=== PATIENT | male | born 2000 | race Asian ===

== ENCOUNTER 2018-07-17 14:25 | Emergency (ER) | payer OTHER ==
[2018-07-17 14:31] VITALS: BP 150/69; PULSE 61; TEMP 98.1; BMI 25.8
--- NOTE | 2018-07-17 14:31 | PDOC ---
Rapid Medical Evaluation Chief Complaint: Bone Injury Medical Evaluation: Allergies Allergy/AdvReac Type Severity Reaction Status Date / Time No Known Allergies Allergy Verified 01/18/16 23:37 07/17/18 14:30 I have performed a brief in-person evaluation of this patient. The patient presents with a chief complaint of:persistent pain to R ankle s/p basketball injury 3 weeks ago Pertinent physical exam findings:unremarkable I have ordered the following:XR The patient will proceed to the ED for further evaluation. Discharge Disposition - Diagnosis Ankle pain Qualifiers: Chronicity: unspecified Laterality: right Qualified Code(s): M25.571 - Pain in right ankle and joints of right foot - Referrals - Patient Instructions - Post Discharge Activity
--- NOTE | 2018-07-17 15:28 | PDOC ---
History of Present Illness - General Chief Complaint: Bone Injury Stated Complaint: RT ANKLE INJURY Time Seen by Provider: 07/17/18 14:47 History Source: Patient Exam Limitations: No Limitations - History of Present Illness Initial Comments: 07/17/18 15:21 HISTORY OF PRESENT ILLNESS: 17-year-old man denies medical history presents emergency department for evaluation of right ankle pain for 3 weeks while playing basketball. Patient reports landed on her we will playing basketball and experience sharp pain. It walking on the ankle without difficulty for the past 3 weeks but was out at a [employer] last night and landed awkwardly on his right ankle reinjuring the ankle. Patient has been able to walk since reinjuring the ankle but has noted increased pain and swelling. No recent travel or sick contacts. PAST MEDICAL HISTORY: Denies past medical history SURGICAL HISTORY: Denies ALLERGIES: No known drug allergies REVIEW OF SYSTEMS General/Constitutional: Denies fever or chills. Denies weakness, weight change. HEENT: Denies change in vision. Denies ear pain or discharge. Denies sore throat. Cardiovascular: Denies chest pain or shortness of breath. Respiratory: Denies cough, wheezing, or hemoptysis. Gastrointestinal: Denies nausea, vomiting, diarrhea or constipation. Denies rectal bleeding. Genitourinary: Denies dysuria, frequency, or change in urination. Musculoskeletal: see HPI Skin and breasts: Denies rash or easy bruising. Neurologic: Denies headache, vertigo, loss of consciousness, or loss of sensation. Psychiatric: Denies depression or anxiety. Endocrine: Denies increased thirst. Denies abnormal weight change. Hematologic/Lymphatic: Denies anemia, easy bleeding, or history of blood clots. Allergic/Immunologic: Denies hives or skin allergy. Denies latex allergy. PHYSICAL EXAM General Appearance: Well-appearing, appropriately dressed. No apparent distress , no intoxication. HEENT: EOMI, PERRLA, normal ENT inspection, normal voice, TMs normal, pharynx normal. No conjunctival pallor. No photophobia, scleral icterus. Neck: Supple. Trachea midline. No tenderness, rigidity, carotid bruit, stridor , lymphadenopathy, or thyromegaly. Respiratory/Chest: Lungs CTAB. No shortness of breath, chest tenderness, respiratory distress, accessory muscle use. No crackles, rales, rhonchi, stridor , wheezing, dullness Cardiovascular: RRR. S1, S2. No JVD, murmur, bradycardia, tachycardia. Vascular Pulses: Dorsalis-Pedis (R): 2+, Dorsalis-Pedis (L): 2+ Gastrointestinal/Abdominal: Normal bowel sounds. Abdomen soft, non-distended. No tenderness or rebound tenderness. No organomegaly, pulsatile mass, guarding, hernia, hepatomegaly, splenomegaly. Lymphatic: No adenopathy, tenderness. Musculoskeletal/Extremities: Normal inspection. FROM of all extremities, normal capillary refill. Pelvis Stable. No CVA tenderness. No tenderness to extremities, pedal edema, swelling, erythema or deformity. Swelling and ecchymosis present to right ankle over the lateral malleolus. No tenderness present. Integumentary: Appropriate color, dry, warm. No cyanosis, erythema, jaundice or rash Neurologic: senior ssis developer II-XII intact. Fully oriented, alert. Appropriate mood/affect. Motor strength 5/5. No appreciable EOM palsy, facial droop or sensory deficit. Past History - Past Medical History Allergies/Adverse Reactions: Allergies Allergy/AdvReac Type Severity Reaction Status Date / Time No Known Allergies Allergy Verified 01/18/16 23:37 Home Medications: Ambulatory Orders NK [No Known Home Medication] 07/17/18 COPD: No - Immunization History Immunization Up to Date: Yes - Suicide/Smoking/Psychosocial Hx Smoking Status: No Smoking History: Never smoked Have you smoked in the past 12 months: No Number of Cigarettes Smoked Daily: 0 Hx Alcohol Use: No Drug/Substance Use Hx: No *Physical Exam - Vital Signs Last Vital Signs Temp Pulse Resp BP Pulse Ox 98.1 F 61 18 150/69 99 07/17/18 14:29 07/17/18 14:29 07/17/18 14:29 07/17/18 14:29 07/17/18 14:29 Moderate Sedation - Procedure Monitoring Vital Signs: Procedure Monitoring Vital Signs Temperature 98.1 F 07/17/18 14:29 Pulse Rate 61 07/17/18 14:29 Respiratory Rate 18 07/17/18 14:29 Blood Pressure 150/69 07/17/18 14:29 O2 Sat by Pulse Oximetry (%) 99 07/17/18 14:29 Medical Decision Making - Medical Decision Making 07/17/18 15:21 A/P: 17-year-old man with right ankle pain for 3 weeks after playing basketball. No bony tenderness present to bones of the lower leg, ankle or foot 2+ DP pulses present bilaterally Capillary refills within normal limits Neurovascular intact X-rays perform rapid medical evaluation as read by me: No acute fractures or dislocations present Ambrosio bandage Discharge home with orthopedic follow-up. *DC/Admit/Observation/Transfer Diagnosis at time of Disposition: Ankle pain Qualifiers: Chronicity: unspecified Laterality: right Qualified Code(s): M25.571 - Pain in right ankle and joints of right foot - Discharge Dispostion Disposition: HOME Condition at time of disposition: Stable Decision to Admit order: No - Referrals Referrals: Demarco Munguia MD [Staff Physician] - - Patient Instructions Additional Instructions: Take Tylenol or Motrin as needed for pain. Follow manufacturers instructions for appropriate dosage. Try not to walk or bear weight on your right ankle as much as possible for the next 3 days. Apply ice for 20 minutes and removed for at least 20 minutes before reapplying the ice. Keep Ambrosio wrap on your ankle as much as possible to help decrease some of the swelling control pain. Whenever possible keep your foot elevated to decrease swelling to your ankle. You've been given the number for an orthopedist. If symptoms do not resolve within the next 7 days call the orthopedist for further evaluation. Return to emergency department for discoloration of the foot, numbness or tingling to the foot, worsening pain, or any other concerns. Thank you very much for choosing us to provide your emergent healthcare needs. - Post Discharge Activity
== END 2018-07-17 15:48 | disposition home or self-care (01) ==
LOC: JERFT 14:25
DX: M25.571 Pain in right ankle and joints of right foot (principal); X50.1XXA Overexertion from prolonged static or awkward postures, initial encounter; Y93.67 Activity, basketball; Y92.310 Basketball court as the place of occurrence of the external cause; Y99.8 Other external cause status
CPT/HCPCS: 73610-TC-RT-FY; 73630-TC-RT-FY; 99281-25

== ENCOUNTER 2019-07-02 16:13 | Emergency (ER) | payer OTHER ==
--- NOTE | 2019-07-02 16:20 | PDOC ---
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 + nasal congestion A: viral syndrome? P; patient to fast track for further management of caRE Discharge Disposition - Diagnosis Viral syndrome - Referrals - Patient Instructions - Post Discharge Activity
[2019-07-02 16:21] VITALS: BP 127/67; PULSE 66; TEMP 98.1; BMI 25.8
[2019-07-02] MEDS ORDERED: METOCLOPRAMIDE HCL 10 MG TABLET (FP) PO ONE ×2 (16:42→16:49)
[2019-07-02] MEDS ORDERED: KETOROLAC TROMETHAMINE 30 MG/1 ML VIAL IM ONE (16:42)
[2019-07-02] MEDS ORDERED: KETOROLAC TROMETHAMINE 30 MG/1 ML VIAL ONE (16:49)
--- NOTE | 2019-07-02 16:53 | PDOC ---
History of Present Illness - General Chief Complaint: Cold Symptoms Stated Complaint: COLD SYMPTOMS Time Seen by Provider: 07/02/19 16:18 History Source: Patient Exam Limitations: No Limitations - History of Present Illness Initial Comments: 07/02/19 16:49 18-year-old male denies past medical history presents complaining of frontal headache, nausea, nasal congestion, productive cough, body aches, subjective fever and chills x4 days. 2 days ago had 2 episodes of diarrhea, works at a hospital. Denies sore throat, earache, abdominal pain, vomiting, chest pain, shortness of breath, rash, neck pain, urinary symptoms or recent travel. ROS: GENERAL/CONSTITUTIONAL: Subjective fever, chills, body aches, denies weakness, dizziness HEAD, EYES, EARS, NOSE AND THROAT: No changes in vision, No ear pain or discharge, No sore throat CARDIOVASCULAR: No chest pain RESPIRATORY: Productive cough GASTROINTESTINAL: No pain, nausea, vomiting, diarrhea or constipation GENITOURINARY: No dysuria MUSCULOSKELETAL: No neck or back pain SKIN: No rash NEUROLOGIC: Frontal headache, denies vertigo, loss of consciousness, or loss of sensation PE: GENERAL: well-appearing, NAD HEAD: NCAT EYES: Pupils equal, round and reactive to light, sclera anicteric, conjunctiva clear ENT: Bilateral normal ear canals, TM's, pharynx: no erythema, no exudate, uvula midline NECK: supple, no lymphadenopathy CHEST: nontender RESP: clear, no w/r/r CARDIO: rrr, no m/g/r ABD: +BS, soft, nontender, non distended BACK: no midline spinal ttp, no CVAT EXTREMITIES: Normal range of motion, no edema NEUROLOGICAL: Normal speech, normal gait SKIN: Warm, Dry Is this a multiple visit Asthma Patient?: No Past History - Past Medical History Allergies/Adverse Reactions: Allergies Allergy/AdvReac Type Severity Reaction Status Date / Time No Known Allergies Allergy Verified 07/02/19 16:16 Home Medications: Ambulatory Orders NK [No Known Home Medication] 07/17/18 COPD: No - Immunization History Immunization Up to Date: Yes - Psycho Social/Smoking Cessation Hx Smoking Status: No Smoking History: Never smoked Have you smoked in the past 12 months: No Number of Cigarettes Smoked Daily: 0 Information on smoking cessation initiated: No Hx Alcohol Use: No Drug/Substance Use Hx: No *Physical Exam - Vital Signs Last Vital Signs Temp Pulse Resp BP Pulse Ox 98.1 F 66 18 127/67 100 07/02/19 16:14 07/02/19 16:14 07/02/19 16:14 07/02/19 16:14 07/02/19 16:14 Medical Decision Making - Medical Decision Making 07/02/19 16:52 18-year-old healthy male presents complaining of frontal headache, nausea, body aches, subjective fever and chills, productive cough x4 days. Symptoms consistent with viral illness Neurologically intact Toradol 30 mg IM Reglan 10 mg p.o. x1 P.o. hydration Reassess 07/02/19 17:07 Stable for discharge Note for work provided Strict return precautions discussed Discharge - Discharge Information Problems reviewed: Yes Clinical Impression/Diagnosis: Viral syndrome Condition: Stable Disposition: HOME - Admission No - Follow up/Referral Referrals: Jimbo Thibodeaux MD [Primary Care Provider] - - Patient Discharge Instructions Additional Instructions: Rest, hydrate, take ibuprofen 600 mg every 6 hours as needed Return to ED if symptoms worsen - Post Discharge Activity Work/Back to School Note: Back to Work
== END 2019-07-02 17:13 | disposition home or self-care (01) ==
LOC: JERFT 16:13
DX: B34.9 Viral infection, unspecified (principal)
CPT/HCPCS: 99281-25

== ENCOUNTER 2020-09-09 17:13 | Emergency (ER) | payer SELFPAY ==
[2020-09-09] MEDS ORDERED: IBUPROFEN 600 MG TABLET (FP) PO ONE ×2 (17:35→17:58)
[2020-09-09 17:42] VITALS: TEMP 98.3; BMI 25.8
[2020-09-09 18:29] VITALS: BP 140/89; PULSE 89
== END 2020-09-09 18:29 | disposition home or self-care (01) ==
LOC: JER 17:13 → JERFT 17:13
DX: S69.92XA Unspecified injury of left wrist, hand and finger(s), initial encounter (principal)
CPT/HCPCS: 73130-TC-LT-FY; 99284-25